=== PATIENT | female | born 1985 | race Caucasian/White ===

== ENCOUNTER 2017-08-28 20:12 | Emergency (ER) | payer MEDICAID ==
[~2017-08-28] VITALS: Ht 162.6 cm; Wt 62.1 kg
[2017-08-29 00:57] VITALS: BP 118/75
== END 2017-08-29 00:57 | disposition home or self-care (01) ==
LOC: ED 20:12
DX: M25.562 Pain in left knee (principal); V49.9XXA Car occupant (driver) (passenger) injured in unspecified traffic accident, initial encounter; Y93.89 Activity, other specified; Y92.89 Other specified places as the place of occurrence of the external cause; Y99.8 Other external cause status